=== PATIENT | male | born 1945 | race Caucasian/White ===

== ENCOUNTER 2017-01-10 18:33 | Observation (INO) | payer MEDICARE, BC ==
[2017-01-10 18:52] LABS: BASOPHILS % (AUTO) 1 % (0-3); EOSINOPHILS % (AUTO) 2 % (0-9); HEMATOCRIT 34 % (39-53); MEAN CORPUSCULAR HGB CONC 32.3 gm/dl (32.0-36.0); MEAN CORPUSCULAR VOLUME 92 fL (80-100); MONOCYTES % (AUTO) 6.4 % (0-12); NEUTROPHILS % (AUTO) 72.6 % (37-80)
[2017-01-10] MEDS: APAP/HYDROCODONE 325/5 TAB PO PRN ×2 (19:15→23:24)
[2017-01-10 19:16] LABS: ALBUMIN 3.4 gm/dl (3.4-5.0); CALCIUM 8.9 mg/dl (8.5-10.1)
[2017-01-10] MEDS ORDERED: Non-Formulary Medication MISC (Polyethylene Glycol 3350 [Polyethylene Glycol* (Miralax)] PO PRN (19:34)
[2017-01-10] MEDS ORDERED: CALCITRIOL 0.25 MCG PO SCH (19:45)
[2017-01-10] MEDS ORDERED: NYSTATIN 100000 UNIT TP SCH (19:45)
[2017-01-10] MEDS ORDERED: CEFTRIAXONE 1 GM PDS IM ONE (19:48)
[2017-01-10] MEDS ORDERED: POLYETHYLENE GLYCOL 17 GM/1 TBS PDS PO PRN ×2 (20:06→23:08)
[2017-01-10] MEDS ORDERED: LIDOCAINE HCL 1% MPF SOL ONE (20:25)
[2017-01-10] MEDS ORDERED: NYSTATIN 1 GM POW TOP SCH (20:30)
[2017-01-10] MEDS ORDERED: CYANOCOBALAMIN 1000 MCG/ML SOL IM SCH (20:30)
[2017-01-10] MEDS: METOPROLOL TARTRATE 25 MG TAB PO SCH (21:00)
[2017-01-10] MEDS ORDERED: PROGRAF PO SCH (21:00)
[2017-01-10] MEDS ORDERED: POTASSIUM CHLORIDE 10 MEQ CAPSULE PO SCH (21:00)
[2017-01-10] MEDS ORDERED: FUROSEMIDE 40 MG TAB PO SCH (21:00)
[2017-01-10] MEDS: MYCOPHENOLATE PO SCH (22:02)
[2017-01-10] MEDS: POTASSIUM CHLORIDE 10 MEQ TER PO SCH (22:03)
[2017-01-10 23:29] VITALS: O2SAT 95
[2017-01-11] MEDS ORDERED: LEVOTHYROXINE SODIUM 50 MCG TAB PO SCH ×2 (06:30→07:00)
[2017-01-11] MEDS: APAP/HYDROCODONE 325/5 TAB PO PRN (07:32)
[2017-01-11 07:39] VITALS: BP 165/72; PULSE 70; RESP 18; TEMP 97.6
[2017-01-11] MEDS ORDERED: TORSEMIDE 20 MG TAB PO SCH (09:00)
[2017-01-11] MEDS ORDERED: [UNRECOGNIZED DRUG - OTHER] PO SCH (09:00)
[2017-01-11] MEDS ORDERED: AMLODIPINE 5 MG TAB PO SCH (09:00)
[2017-01-11] MEDS ORDERED: METOPROLOL TARTRATE 50 MG TAB PO SCH (09:00)
[2017-01-11] MEDS ORDERED: ALLOPURINOL 100 MG TAB PO SCH (09:00)
[2017-01-11] MEDS ORDERED: MULTIVITAMIN2 1 EA TAB PO SCH (09:00)
[2017-01-11] MEDS ORDERED: HYDROCHLOROTHIAZIDE/TRIAMTER 25/37.5 CAPSULE PO SCH (09:00)
[2017-01-11] MEDS ORDERED: PREDNISONE 5 MG TAB PO SCH (09:00)
[2017-01-11] MEDS ORDERED: TORSEMIDE 10 MG TABLET PO SCH (09:30)
[2017-01-11] MEDS: POTASSIUM CHLORIDE 10 MEQ TER PO SCH (09:34)
[2017-01-11] MEDS: MYCOPHENOLATE PO SCH (09:58)
[2017-01-11] MEDS: METOPROLOL TARTRATE 25 MG TAB PO SCH (09:59)
[2017-01-11] MEDS ORDERED: CALCIUM CARBONATE 500 MG TAB PO SCH (21:00)
[2017-01-12] MEDS ORDERED: CALCITRIOL 0.25 MCG SGL PO SCH (09:00)
== END 2017-01-11 09:50 | disposition home or self-care (01) | DRG 690 ==
LOC: ACUTE CARE 18:33
PROVIDERS: ADMIT Family Medicine; ATTEND Family Medicine
DX: N30.01 Acute cystitis with hematuria (principal); Z94.0 Kidney transplant status; N28.89 Other specified disorders of kidney and ureter
CPT/HCPCS: 36415; 74176; 80053; 85025; J0696; J2001

== ENCOUNTER 2018-04-18 12:40 | Emergency (ER) | payer MEDICARE, BC ==
[2018-04-18 12:52] VITALS: RESP 16
[2018-04-18 14:12] VITALS: TEMP 96.2
[2018-04-18 14:26] VITALS: BP 118/69; PULSE 62; O2SAT 96
== END 2018-04-18 14:19 | disposition home or self-care (01) | DRG 552 ==
LOC: ED 12:40
DX: S33.5XXA Sprain of ligaments of lumbar spine, initial encounter (principal); W19.XXXA Unspecified fall, initial encounter
CPT/HCPCS: 72120; 99282; 99283